=== PATIENT | female | born 1950 | race Caucasian/White ===

== ENCOUNTER → 2020-11-10 | Outpatient (CLI) | payer MEDICARE ==
[2020-11-10] MEDS: SIMETHICONE/SOD BICARB/CITRIC ACID PACKET. PO ONE (09:05)
[2020-11-10] MEDS: BARIUM SULFATE 98% 135 ML SUSP PO ONE (09:05)
[2020-11-10] MEDS: BARIUM SULFATE 60% 355 ML SUSP PO ONE (09:05)
--- NOTE | 2020-11-10 14:35 | RAD ---
Esophagram 11/10/2020 CLINICAL HISTORY: History of dysphagia. The patient underwent EGD with dilatation of the distal esoph jose last week. TECHNIQUE: An esophagram was performed under fluoroscopic control. The total fluoroscopic time is 4 m inutes. 8 digital spot radiograph were obtained. FINDINGS: The swallowing mechanism is within normal limits. There is a small Zenker's diverticulum. N o penetration or aspiration is seen. The mucosal pattern of the hypopharynx, esophagus and GE junctio n is within normal limits. The mid thoracic esophagus is dilated. There is moderate esophageal dysmot ility. The patient has a poor primary stripping wave with tertiary contractions of esophagus seen. No obstruction to the flow of contrast is noted. No stricture is seen. There is a small to moderate-siz ed sliding hiatal hernia. Moderate to severe gastroesophageal reflux is seen to the level of the uppe r thoracic esophagus. IMPRESSION: 1. Small Zenker's diverticulum. 2. Moderate esophageal dysmotility. 3. Small to moderate-sized sliding hiatal hernia. Moderate to severe gastroesophageal reflux is seen. Electronically signed by: Harris Varela MD (11/10/2020 2:32 PM) [id number]
== END ==
LOC: RAD 08:25
PROVIDERS: ATTEND Internal Medicine Gastroenterology
DX: K22.5 Diverticulum of esophagus, acquired (principal); K44.9 Diaphragmatic hernia without obstruction or gangrene; K21.9 Gastro-esophageal reflux disease without esophagitis
CPT/HCPCS: 74220